=== PATIENT | male | born 1950 | race African-American/Black ===

== ENCOUNTER 2018-07-25 14:25 | Inpatient (IN) | payer OTHER ==
[~2018-07-25] VITALS: Ht 180.3 cm; Wt 92.1 kg
--- NOTE | ~2018-07-25 | EKG ---
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 : 1950 Requested By: Elver Mccormick Order Number: [id number] MD: Geronimo Jasso Measurements Intervals [place] Rate: 81 P: 60 PA: 212 QRS: -45 QRSD: 144 T: 3 QT: 387 QTc: 450 Interpretive Statements Sinus arrhythmia Borderline prolonged PA interval RBBB and LAFB Compared to ECG 11/01/2012 21:46:04 Heart rate has slowed Electronically Signed On 07-26-2018 8:02:18 SENIOR DIRECTOR by Geronimo Jasso [email or web address] <ELECTRONICALLY SIGNED> By: Geronimo Jasso MD, [facility] 07/26/18 0802 0 0 Geronimo Jasso MD, [facility] /EPI
--- NOTE | ~2018-07-25 | 2DMMODE ---
[facility] [address] [place] [address] 2 D/M-MODE ECHOCARDIOGRAM Name: NIDIATOM T Room #: 353-P [facility] IN ..#: [id number] Admission: 07/25/18 Attend Phys: Lavon Helton MD Discharge: Date of : 48 Date of Service: 07/26/18 1202 Report #: [id number] THIS REPORT FOR: //name// APPROVED REPORT Study performed: 07/26/2018 08:58:14 EXAM: Comprehensive 2D, Doppler, and color-flow Echocardiogram Patient Location: Echo lab Room #: [facility] Status: routine BSA: 2.10 HR: 74 bpm BP: 125/69 mmHg Rhythm: NSR Other Information Study Quality: Good Risk Factors: Cardiac Risk Factors: HTN, DM Indications CVA/TIA Diabetes Hypertension/HDD Echo Enhancing Agent Indication: Rule out Shunt Agent(s) / Amount(s) Used: Agitated Saline 7 cc 2D Dimensions RVDd: 31.95 mm IVSd: 13.03 (7-11mm) LVOT Diam: 22.48 (18-24mm) LVDd: 47.60 mm PWd: 13.77 (7-11mm) Ascending Ao: 33.40 (22-36mm) LVDs: 27.30 (25-40mm) Aortic Root: 32.71 mm IVC: 15.00 mm Volumes Left Atrial Volume (Systole) Single Plane 4CH: 35.28 mL Single Plane 2CH: 74.43 mL LA ESV Index: 28.00 mL/m2 Aortic Valve [facility] [address] [place] [address] 2 D/M-MODE ECHOCARDIOGRAM Name: TOM JACOB Room #: 353-P [facility] IN ..#: [id number] Admission: 07/25/18 Attend Phys: Lavno Helton MD Discharge: Date of : 48 Date of Service: 07/26/18 1202 Report #: [id number] AoV Peak Kwesi.: 1.94 m/s AO Peak Gr.: 15.05 mmHg LVOT Max P.11 mmHg LVOT Max V: 1.33 m/s VINICIUS Vmax: 2.73 cm2 Mitral Valve E/A Ratio: 0.9 MV Decel. Time: 195.97 ms MV E Max Kwesi.: 0.75 m/s MV A Kwesi.: 0.81 m/s MV PHT: 56.83 ms IVRT: 55.36 ms Pulmonary Valve PV Peak Kwesi.: 1.10 m/s PV Peak Gr.: 4.84 mmHg Pulmonary Vein P Vein S: 0.41 m/s P Vein A: 0.35 m/s P Vein D: 0.51 m/s P Vein A Dur.: 129.2 msec P Vein S/D Ratio: 0.80 Tricuspid Valve TR Peak Kwesi.: 1.48 m/s TR Peak Gr.: 8.78 mmHg Left Ventricle The left ventricle is normal size. There is normal LV segmental wall motion. Mild concentric left ventricular hypertrophy. The left ventricular systolic function is normal. The left ventricular ejection fraction is within the normal range. LVEF is 55-60%. Grade II - pseudonormal filling dynamics. Right Ventricle The right ventricle is normal size. The right ventricular systolic function is normal. Atria The left atrium size is normal. The right atrium size is normal. Aortic Valve The aortic valve is normal in structure. No aortic regurgitation is present. There is no aortic valvular stenosis. Mitral Valve The mitral valve is normal in structure. Trace mitral regurgitation. [facility] [address] [place] [address] 2 D/M-MODE ECHOCARDIOGRAM Name: NIDIATOM T Room #: 353-P [facility] IN .R.#: [id number] Admission: 07/25/18 Attend Phys: Lavon Helton MD Discharge: Date of : 48 Date of Service: 07/26/18 1202 Report #: [id number] No evidence of mitral valve stenosis. Tricuspid Valve The tricuspid valve is normal in structure. There is no tricuspid valve regurgitation noted. Pulmonic Valve The pulmonary valve is normal in structure. There is no pulmonic valvular regurgitation. Great Vessels The aortic root is normal in size. IVC is normal in size and collapses >50% with inspiration. Pericardium There is no pericardial effusion. <Conclusion> The left ventricle is normal size. LVEF is 55-60%. The aortic valve is normal in structure. The mitral valve is normal in structure. Trace mitral regurgitation. The tricuspid valve is normal in structure. The pulmonary valve is normal in structure. <ELECTRONICALLY SIGNED> By: Luis A Bautista MD 07/26/18 120 01 01 Luis A Bautista MD /INF
--- NOTE | ~2018-07-25 | EKG ---
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: TANISHA : 1950 Requested By: Luis Mayen Order Number: [id number] MD: Geronimo Jasso Measurements Intervals [place] Rate: 111 P: 62 AR: 181 QRS: -60 QRSD: 149 T: 32 QT: 348 QTc: 473 Interpretive Statements Sinus tachycardia RBBB and LAFB Compared to ECG 11/01/2012 21:46:04 Heart rate has increased Electronically Signed On 07-26-2018 7:53:24 GLASS LINED TANK REPAIRER by Geronimo Jasso [email or web address] <ELECTRONICALLY SIGNED> By: Geronimo Jasso MD, [facility] 07/26/18 0753 1430 1430 Geronimo Jasso MD, FACC /EPI
--- NOTE | ~2018-07-25 | HC ---
[facility] [place] [address] CONSULTATION Name: TOM JACOB Room #: 353-P ADM IN M.R.#: [id number] Admission: 07/25/18 Attend Phys: Lavon Helton MD Discharge: Date of : 49 Report #: [id number] THIS REPORT FOR: //name// CC: Lavon Glynn MD DATE OF SERVICE: 07/25/2018 HISTORY OF PRESENT ILLNESS: The patient is a 67-year-old male who I was asked to see for presentation of a cerebrovascular accident. He does not have documented coronary artery disease. He has never had a prior stroke until what appears the day after approximately 1:30 to 1:00 p.m. today, he woke up with after a nap with some right upper extremity weakness and clumsiness. Came to [facility] Emergency Room. He was seen by ER physician and Neurology. They decided no TPA to be given. He had some subtle resolving of his symptoms and had a recent workup for GI bleed. So, there were some complicating issues. His CT scan was negative for bleed. The MRI suggests a small focal 7-mm acute cortical infarct in the high left frontal region, felt to be embolic, mild white matter disease, periventricular. CT scan stroke protocol. CTA, no evidence of high-grade stenosis or aneurysm. No significant stenosis in the carotid arteries. An unremarkable CT perfusion. He is slowly resolving tonight. He is alert and oriented. He is walking. Only right upper extremity was involved. He still complains of some clumsiness in strength and weakness, but is getting better. LABORATORY WORK: Sodium 135, potassium 4.6, creatinine 1.0. Sugars have been elevated in the 300 range. Lipids were not performed. Troponin is negative. Alkaline phosphatase was mildly elevated. Magnesium was low. Calcium 10.2. Liver function tests were normal. Drug screen was negative. H and H was 13.9 and 43.1, white count 6.5. TSH normal 0.658. FAMILY HISTORY: Negative for premature coronary artery disease. PAST MEDICAL HISTORY: Positive for hypertension, hypercholesterolemia, bowel resection with colostomy, now has been taken back down for colon cancer and diabetes, DJD. HOME MEDICATIONS: Finasteride, lisinopril 10, lovastatin 20, glimepiride 4, metformin 1000 b.i.d., Protonix and a baby aspirin, he states he has taken for 15 years. SOCIAL HISTORY: He is . He is retired from the [employer]. He has grown children. No alcohol. Pack a day smoker. REVIEW OF SYSTEMS: Negative except for some hesitancy and as stated above. [facility] [address] [place] [address] CONSULTATION Name: TOM JACOB Room #: 353-P [facility] IN M.R.#: [id number] Admission: 07/25/18 Attend Phys: Lavon Helton MD Discharge: Date of : 48 Report #: [id number] PHYSICAL EXAMINATION: GENERAL: He is pleasant and alert. He is ambulating. VITAL SIGNS: Blood pressure 120/68, pulse 80s. HEENT: Eyes reveal xanthelasmas. Pharynx is clear. NECK: Shows preserved upstrokes without JVD or bruits. LUNGS: Clear. CARDIOVASCULAR: Regular rate and rhythm, S1, S2, without murmur or gallop. ABDOMEN: Soft. No HSM or abdominal bruit. EXTREMITIES: Reveal no edema. Distal pulses intact. NEUROLOGIC: There is some weakness and some slight clumsiness of the right upper extremity and hand. The attractions associate strength is fairly well preserved. The arm is weaker 1-2+. Fine motor is also off slightly. No other focal findings. ASSESSMENT: 1. Cerebrovascular accident, left frontal lobe as described above with mild right upper extremity residual. 2. Hypertension. 3. Hypercholesterolemia. 4. Diabetes. 5. Degenerative joint disease. RECOMMENDATIONS AND PLAN: He is on Lovenox prophylactically. Continue with his aspirin and statin. We will check lipid profile, echo Doppler in the morning with bubble. He is on a telemetry floor. Obviously underlying paroxysmal AFib is a concern here, but there is no documentation of this and he is in sinus rhythm currently. Low fat, low sodium, cholesterol diet and we will follow with you. Obviously at risk for coronary artery disease, but none documented. We will also give consideration to outpatient stress testing. By: 2034 0858 Elver Mccormick MD, FACC /nt
--- NOTE | ~2018-07-25 | HC ---
[facility] [place] [address] CONSULTATION Name: TOM JACOB Room #: 353-P [facility] IN ..#: [id number] Admission: 07/25/18 Attend Phys: Lavon Helton MD Discharge: Date of : 49 Report #: [id number] THIS REPORT FOR: //name// CC: Lavon Glynn DATE OF SERVICE: 07/25/2018 HISTORY OF PRESENT ILLNESS: This is a 67-year-old male patient who was seen by me in the Emergency Room. The patient had an acute onset of what looks like ataxia in the right upper extremity. He went to sleep around noon and woke up around 1:30 and had these symptoms, so his time of onset is known. He was still having symptoms when he came here. REVIEW OF SYSTEMS: Positive for weakness and ataxia in the right upper extremity. He has been recently worked up for GI bleed. His hemoglobin has fallen and they were able to localize the GI bleed. He does have a history of hypertension, but his blood pressure was not too bad. He does have a history of hyperglycemia and hyperlipidemia. He has a prior history of colon cancer. This was his relevant 14-point review of system. PAST MEDICAL HISTORY: Negative for any stroke. FAMILY HISTORY: Negative for early age stroke. SOCIAL HISTORY: He smokes. PHYSICAL EXAMINATION: Indicate he is alert, responsive. His speech, concentration, fund of knowledge and memory is his baseline. Cranial nerve examination 2-12 looks mostly unremarkable. He does have slight weakness in the right upper extremity. He is able to walk. His acqwyo-mt-nhtc is abnormal in the right upper extremity and that was the main finding on examination. His cardiac and respiratory examination was unremarkable. IMPRESSION: The patient's clinical presentation was consistent with cerebrovascular accident. It appeared to be a small cerebrovascular accident. We had a long and multiple conversations with the patient. We discussed the TPA. He was outside the window for 3 hours, but inside the window for 4-1/2 hours. We talked about TPA, but the problem was difficult because of his recent history of GI bleed. We could not identify when was the last GI bleed this patient had. He has had somewhere in June, so it was not clear. If we gave him the option of TPA, he decided against the TPA because of the potential side effect and the main thing he had was ataxia. So, we went ahead and did a CT angio and perfusion. I reviewed that with the radiologist and he is on no abnormality. Subsequently, we did get an MRI done, which demonstrated a small [address] [address] CONSULTATION Name: TOM JACOB Room #: 353-P [facility] IN M.R.#: [id number] Admission: 07/25/18 Attend Phys: Lavon Helton MD Discharge: Date of : 49 Report #: [id number] stroke. It is surprisingly in the frontal area. We gave him some fluid bolus. We will basically watch him and start him on stroke prophylaxis. More than 50 minutes of time was spent taking care of this patient today and majority of that time was spent counseling the patient about pros and cons of TPA, his management and his testing, etc. Thank you very much for this referral. By: 1754 0041 Charly Garrett MD /nt
[~2018-07-25 14:25] MED LIST: AMARYL4 MG PO; ASPIRIN EC81 M1 PO; FINASTERIDE5 MG PO; GLUCOPHAGE1000 MG PO; LISINOPRIL10 MG PO; LOVASTAT20 PO; METFORMIN HCL1000 M1 PO; NORCO 5-325 TA1 EACH PO; PROTONIX40 M2 PO; ZOFRAN4 MG PO
[2018-07-25 14:26] VITALS: BP 152/90
[2018-07-25 15:06] LABS: HEMATOCRIT 43.1 % (42.0-52.0); HEMOGLOBIN 13.9 gm/dL (14.0-18.0); MCH 24.5 pg (26.0-34.0); MCHC 32.1 g/dL (28.0-37.0); MCV 76.1 fL (80.0-100.0); PLATELET COUNT 217 thou/uL (150-400); RBC 5.66 mil/uL (4.50-6.00); RDW 22.8 % (10.5-14.5); WBC 6.5 thou/uL (4.0-11.0)
[2018-07-25 15:20] LABS: ANION GAP 13 mmol/L (7-16); BUN 13 mg/dL (7-18); CALCIUM 10.2 mg/dL (8.5-10.1); CHLORIDE 98 mmol/L (98-107); CO2 24 mmol/L (21-32); GLUCOSE 394 mg/dL (74-106); POTASSIUM 4.6 mmol/L (3.5-5.1); SODIUM 135 mmol/L (136-145)
[2018-07-25 15:20] LABS: URINE BILIRUBIN NEGATIVE (Negative); URINE BLOOD TRACE (Negative); URINE CLARITY CLEAR; URINE COLOR YELLOW; URINE GLUCOSE-RANDOM* 3+ (Negative); URINE KETONES NEGATIVE (Negative); URINE LEUKOCYTES-REFLEX NEGATIVE (Negative); URINE NITRITE-REFLEX NEGATIVE (Negative); URINE PROTEIN (DIPSTICK) NEGATIVE (Negative); URINE SPECIFIC GRAVITY 1.015 (1.005-1.035); URINE UROBILINOGEN 0.2 E.U./dl (0.2-1.0)
[2018-07-25 15:23] LABS: APTT 27.7 Seconds (24.5-32.8); PROTIME 10.7 Seconds (9.3-11.4)
[2018-07-25 15:28] LABS: AMP/METHAMP Negative (Negative); BARBITURATES Negative (Negative); BENZODIAZEPINES Negative (Negative); COCAINE Negative (Negative); METHADONE Negative (Negative); OPIATES Negative (Negative); PCP Negative (Negative)
[2018-07-25 15:28] LABS: ALBUMIN 3.4 g/dL (3.4-5.0); MAGNESIUM 1.5 mg/dL (1.8-2.4); SGOT 24 U/L (15-37); SGPT 33 U/L (30-65); TOTAL BILIRUBIN 0.3 mg/dL (<0.1-1.0); TOTAL PROTEIN 7.8 g/dL (6.4-8.2); TROPONIN-I <0.06 ng/mL (<0.06)
[2018-07-25 16:34] LABS: ANISOCYTOSIS 2+
[2018-07-25 17:09] VITALS: BP 133/80
[2018-07-25 17:43] VITALS: BP 133/84
[2018-07-25 17:59] VITALS: BP 133/84
[2018-07-25 19:07] VITALS: BP 119/68
[2018-07-25 20:58] LABS: CHOLESTEROL 138 mg/dL (<200); HDL CHOLESTEROL 28 mg/dL (>40); LDL CHOLESTEROL 49 mg/dL (<100); TC:HDL 4.9 Ratio (Not establshd); TRIGLYCERIDE 306 mg/dL (<150); VLDL 61 mg/dL (<40)
[2018-07-25 21:00] LABS: SERUM ASSESSMENT Clear
[2018-07-26] VITALS (7 sets, daily range): BP systolic 104–133; BP diastolic 69–84
[2018-07-26 06:30] LABS: CALCIUM 9.7 mg/dL (8.5-10.1); CREATININE 0.8 mg/dL (0.7-1.3)
[2018-07-26 06:38] LABS: HEMATOCRIT 40.2 % (42.0-52.0); HEMOGLOBIN 12.8 gm/dL (14.0-18.0); MCH 24.3 pg (26.0-34.0); MCHC 31.8 g/dL (28.0-37.0); MCV 76.6 fL (80.0-100.0); RBC 5.26 mil/uL (4.50-6.00); RDW 23.5 % (10.5-14.5); WBC 4.8 thou/uL (4.0-11.0)
[2018-07-26 11:14] LABS: % SATURATION 10 % (20-39); IRON 35 ug/dL (65-175); TIBC 337 ug/dL (250-450)
[2018-07-26 11:41] LABS: FERRITIN 25 ng/mL (26-388)
[2018-07-27 04:35] VITALS: BP 110/61
[2018-07-27 08:03] VITALS: BP 115/77
[2018-07-27] MEDS ORDERED: B-12500 MCG PO (11:42)
[2018-07-27] MEDS ORDERED: NICOTINE TRANSD21 M1 TRANSDERM (11:42)
[2018-07-27 12:37] VITALS: BP 115/77
== END 2018-07-27 16:00 | disposition home or self-care (01) | DRG 64 ==
LOC: ER 14:25 → 3W 16:07 → EROBS 16:07 → 3W 17:43
PROVIDERS: Emergency Medicine; Hospitalist; Internal Medicine Cardiovascular Disease; Internal Medicine Geriatric Medicine
DX: I63.9 Cerebral infarction, unspecified (principal); E43 Unspecified severe protein-calorie malnutrition; K92.2 Gastrointestinal hemorrhage, unspecified; I10 Essential (primary) hypertension; E78.00 Pure hypercholesterolemia, unspecified; E11.9 Type 2 diabetes mellitus without complications; K21.9 Gastro-esophageal reflux disease without esophagitis; E83.42 Hypomagnesemia; F17.210 Nicotine dependence, cigarettes, uncomplicated; Z93.2 Ileostomy status; Z93.3 Colostomy status; Z85.038 Personal history of other malignant neoplasm of large intestine; Z85.048 Personal history of other malignant neoplasm of rectum, rectosigmoid junction, and anus; Z79.82 Long term (current) use of aspirin; Z79.84 Long term (current) use of oral hypoglycemic drugs; Z79.899 Other long term (current) drug therapy; Z71.6 Tobacco abuse counseling
CPT/HCPCS: 10879

== ENCOUNTER → 2019-11-13 | Outpatient (CLI) | payer OTHER ==
[~2019-11-13] MED LIST changes: +B-12500 MCG PO; +NICOTINE TRANSD21 M1 TRANSDERM
== END ==
LOC: SJCVCIMAG 11-08 11:57
DX: I45.10 Unspecified right bundle-branch block (principal); I44.0 Atrioventricular block, first degree; I10 Essential (primary) hypertension; E78.5 Hyperlipidemia, unspecified; E11.9 Type 2 diabetes mellitus without complications

== ENCOUNTER → 2020-08-19 | Outpatient (CLI) | payer OTHER | LOC: SJCVC 10:13 | PROVIDERS: ATTEND Internal Medicine Cardiovascular Disease | DX: R94.31 Abnormal electrocardiogram [ECG] [EKG] (principal); I45.2 Bifascicular block; I63.449 Cerebral infarction due to embolism of unspecified cerebellar artery; I10 Essential (primary) hypertension; E78.00 Pure hypercholesterolemia, unspecified; E11.9 Type 2 diabetes mellitus without complications; Z72.0 Tobacco use; Z79.4 Long term (current) use of insulin; Z79.899 Other long term (current) drug therapy ==

== ENCOUNTER → 2021-03-27 | Outpatient (CLI) | payer OTHER | LOC: SJCVCIMAG 09:43 | PROVIDERS: ATTEND Internal Medicine Cardiovascular Disease | DX: I49.1 Atrial premature depolarization (principal); I45.10 Unspecified right bundle-branch block; I10 Essential (primary) hypertension; E11.9 Type 2 diabetes mellitus without complications; E78.5 Hyperlipidemia, unspecified; R06.00 Dyspnea, unspecified; R53.83 Other fatigue ==

== ENCOUNTER 2021-10-20 18:43 | Inpatient (IN) | payer OTHER ==
[~2021-10-20] VITALS: Ht 180.3 cm; Wt 90.7 kg
[2021-10-20 18:44] VITALS: BP 108/57
[2021-10-20 19:52] LABS: ABSOLUTE NEUTROPHILS 3.1 thou/uL (1.4-8.2); BASOPHILS 0.4 % (0.0-2.0); EOSINOPHILS 0.2 % (0.0-3.0); HEMOGLOBIN 12.3 gm/dL (14.0-18.0); LYMPHOCYTES 17.8 % (24.0-44.0); MCH 23.9 pg (26.0-34.0); MCHC 31.5 g/dL (28.0-37.0); MCV 75.8 fL (80.0-100.0); MONOCYTES 11.5 % (1.0-8.0); PLATELET COUNT 217 thou/uL (150-400); POLYS 70.1 % (36.0-66.0); RBC 5.14 mil/uL (4.50-6.00); RDW 19.1 % (10.5-14.5); WBC 4.4 thou/uL (4.0-11.0)
[2021-10-20 20:05] LABS: CALCIUM 11.8 mg/dL (8.5-10.1); CREATININE 1.9 mg/dL (0.7-1.3); POTASSIUM 5.3 mmol/L (3.5-5.1)
[2021-10-20 20:20] LABS: ALBUMIN 3.7 g/dL (3.4-5.0); MAGNESIUM 1.5 mg/dL (1.8-2.4); TOTAL BILIRUBIN 0.9 mg/dL (0.2-1.0); TOTAL PROTEIN 7.4 g/dL (6.4-8.2)
[2021-10-20 20:32] LABS: ANISOCYTOSIS 1+; HYPOCHROMASIA 1+
[2021-10-20 22:05] LABS: URINE BILIRUBIN NEGATIVE (Negative); URINE BLOOD TRACE (Negative); URINE CLARITY SL CLOUDY; URINE COLOR YELLOW; URINE GLUCOSE-RANDOM* NEGATIVE (Negative); URINE KETONES NEGATIVE (Negative); URINE LEUKOCYTES-REFLEX NEGATIVE (Negative); URINE NITRITE-REFLEX NEGATIVE (Negative); URINE PROTEIN (DIPSTICK) 2+ (Negative); URINE SPECIFIC GRAVITY >= 1.030 (1.005-1.035); URINE UROBILINOGEN 0.2 E.U./dl (0.2-1.0)
[2021-10-20 22:44] LABS: BACTERIA-REFLEX 1-9 Few /HPF (None Seen); CELLULAR CASTS 0-3 Few /LPF (None Seen); CRYSTALS None Seen /LPF (None Seen); HYALINE CASTS 4-10 Moderate /LPF (None Seen); MUCUS 4-6 Moderate strn/LPF (None Seen); SQUAMOUS 4-10 Moderate /LPF (0-3); URINE RBC 1-2 Rare /HPF (NONE SEEN); URINE WBC-REFLEX 0-5 Rare /HPF (0-5)
[2021-10-21 06:21] VITALS: BP 109/66
[2021-10-21 09:00] VITALS: BP 104/68
--- NOTE | 2021-10-21 11:28 | EKG ---
[address] [place] [address] ELECTROCARDIOGRAM REPORT Name: TOM JACOB Room #: 170-16 ADM IN M.R.#: [id number] Admission: 10/20/21 Attend Phys: Ozzie Ulloa MD Discharge: Date of : 49 Report #: [id number] 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: UNKNOWN : 1950 Requested By: Kim Cooper Order Number: [id number] MD: Damion Peterson Measurements Intervals [place] Rate: 136 P: 0 IN: 61 QRS: -49 QRSD: 147 T: 43 QT: 356 QTc: 536 Interpretive Statements Sinus tachycardia Ventricular premature complex RBBB Compared to ECG 07/26/2018 07:11:17 Ventricular premature complex(es) now present Sinus arrhythmia no longer present Electronically Signed On 10-21-2021 11:27:55 PEDIATRIC PHYSICIAN ASSISTANT by Damion ePterson [email or web address] <ELECTRONICALLY SIGNED> By: Damion Peterson MD, [facility] 10/21/21 1127 50 50 Damion Peterson MD, FACC /EPI
[2021-10-21 12:34] LABS: APTT 67.5 Seconds (24.5-32.8); INR 1.14; PROTIME 12.3 Seconds (10.5-12.1)
[2021-10-21 13:50] LABS: % SATURATION 15 % (20-39); IRON 45 ug/dL (65-175); TIBC 309 ug/dL (250-450)
[2021-10-21 15:55] VITALS: BP 104/70
[2021-10-21 19:59] VITALS: BP 105/67
--- NOTE | 2021-10-21 20:09 | NUR ---
REPORT CALLED TO MILAN DOWLING ON THE FLOOR. PT UPDATED THAT HE WILL BE MOVING TO A NEW ROOM.
--- NOTE | 2021-10-21 20:10 | NUR ---
HEPARIN DRIP INFUSING AT 15U/KG/HR (13.6ML/HR). NO S/S BLEEDING NOTED. PT DENIES ANY PAIN OR SOA AT THIS TIME.
[2021-10-21 20:44] VITALS: BP 105/67
[2021-10-21 21:58] VITALS: BP 108/72
[2021-10-22 04:15] LABS: INR 1.16; PROTIME 12.6 Seconds (10.5-12.1)
[2021-10-22 04:20] LABS: APTT > 139.0 Seconds (24.5-32.8)
--- NOTE | 2021-10-22 04:41 | NUR ---
PT WAS ADMITTED TO THE UNIT FROM THE ER IN A STABLE CONDITION.PT ALERT AND ORIENTED,ABLE TO MAKE HIS NEEDS KNOWN.ADMISSION HX ,EDUCATION AND ASSESSMENT DONE.HEPARIN DRIP STARTED IN THE ER BEFORE PT WAS TRANSFERRED TO THE FLOOR.NO S/S OF BLEEDING NOTED SO FAR.LAB CALLED APTT >139 THIS AM,JET BLADE POLISHER ON DUTY NOTIFIED,ORDER NOTED TO FOLLOW PROTOCOL.HEPARIN DRIP WILL BE ON HOLD FOR ONE HOUR THEN RATE WILL BE REDUCED.PT SLEEPING ON HIS BED AT THIS TIME.CALL LIGHT WITHIN REACH.
[2021-10-22 07:36] VITALS: BP 103/65
--- NOTE | 2021-10-22 08:54 | HC ---
[facility] [place] [address] CONSULTATION Name: TOM JACOB Room #: 451-P ADM IN M.R.#: [id number] Admission: 10/20/21 Attend Phys: Ozzie Ulloa MD Discharge: Date of : 48 Report #: [id number] THIS REPORT FOR: cc: FAM - Family physician unknown FAM - Family physician unknown Vidal Diego MD ~ cc: Ranjana Grover MD, Salas Mcgill MD, Babs Morales MD, Elver Mccormick MD REQUESTING PHYSICIAN: Dr. Ranjana Grover. PRIMARY CARE PHYSICIAN: Dr. Salas Mcgill. REASON FOR CONSULTATION: History of colorectal cancer with retroperitoneal adenopathy and questionable bone changes. HISTORY OF PRESENT ILLNESS: The patient is a very pleasant 71-year-old male who is very clear that he had colorectal cancer about 2001 or 20 years ago. He reports having surgery with Dr. Roque at that time. He also reports receiving concurrent chemo and radiation therapy. The radiation therapy was at [facility]. He believes he received the chemotherapy at the ____ Cancer office, which would have been a group the patient's name rings a platt, but we will have to check our records. The patient has about a 3-month history of some back pain that is sometimes on the right, more regularly on the left. Has about a 5- or 10-pound weight loss. Has some GERD symptoms, but that is not new. Evidently on lab work had been found to have an elevated PSA by his description. This was repeated, still elevated. He had seen Dr. Babs Balderas last week, he had a cancer from his description, whether she thought this might be related to BPH or to something more sinister likely a malignancy. The patient denies any arm or leg swelling, any fevers or chills. Has had some newer bowel troubles with some constipation for about the last week. No new urination trouble. No blood in his urine or stool. PAST MEDICAL HISTORY: Notable for the history of what sounds like rectal cancer in 2001, status post surgery. It sounds like he had a temporary ostomy, then a reversal and radiation therapy and chemo. Does not recall his medical oncologist or radiation oncologist names. Also, a history of diabetes type 2, also history of a CVA, also hypertension, also hyperlipidemia, also GERD symptoms, also sounds like renal insufficiency. 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 He lives at home with the . He also has a daughter who suffers from lupus. No pets there. He does not drink, no street drugs, if I recall. [facility] [address] [place] [address] CONSULTATION Name: TOM JACOB Dacia Room #: 451-P ADM IN M.R.#: [id number] Admission: 10/20/21 Attend Phys: Ozzie Ulloa MD Discharge: Date of : 49 Report #: [id number] FAMILY HISTORY: Noncontributory. CURRENT MEDICATIONS: At this time in the hospital include insulin on a sliding scale, pantoprazole, melatonin 10 mg at bedtime, Tylenol p.r.n., and Zofran p.r.n. PHYSICAL EXAMINATION: VITAL SIGNS: Height is 5 feet 11 inches or 180.34 cm, weight is 200 pounds or 90.7 kilograms. Blood pressure is 111/66, O2 sat 98%, respirations 20, pulse 109, afebrile at 98.3. HEENT: Face seems symmetrical. NEUROLOGIC: Mood is pleasant, conversant. He is moving all extremities. LUNGS: Seem clear without any significant rhonchi or rales. HEART: Regular rate. LYMPHATICS: No enlarged lymph nodes in the supraclavicular, cervical, axillary, or inguinal region. ABDOMEN: Without masses. EXTREMITIES: Without clubbing, cyanosis, or edema. LABORATORY DATA: Lab review here, has a potassium of 5.3, a creatinine of 1.9, glucose of 172. Transaminases were normal. Note that his alkaline phosphatase was elevated at 239, calcium 11.8; this will be repeated. Iron in the past was low, this will be repeated today. D-dimer is elevated at 4.58. White count 4.4, hemoglobin 12.3. MCV 75.8; note that back in 2013, it was 82.6. Platelets are 217. White count differential fairly nonacute, no abnormal forms seen. Note that CEA and PSA were ordered and are pending. He was COVID-19 negative. IMAGING: Included the CAT scan that talks about bulky upper abdominal retroperitoneal adenopathy. I did look at the images myself and I concur these are ____ paraspinous in nature. There is also a question about patchy increased density in the spine, sacrum and pelvis, possibly metastatic disease. Note that a bone scan has been ordered. ASSESSMENT AND PLAN: 1. History of rectal cancer from 2001, doubt recurrence this far out. Last colonoscopy was 2 years ago. 2. Retroperitoneal adenopathy with questionable bony changes and possible elevation of PSA. We will repeat PSA today. We will also consult Urology group that Dr. Babs Balderas is part of. I have talked with their nurse practitioner, [place]. They will see the patient and provide records from outside office. 3. Hypercalcemia, may be hydrated. We will check ionized calcium. 4. Back pain with elevated alkaline phosphatase. We will check bone scan. 5. Dyspnea on exertion, shortness of air. Defer to others. [facility] [address] [place] [place] [address] CONSULTATION Name: TOM JACOB Dacia Room #: 451-P ADM IN M.R.#: [id number] Admission: 10/20/21 Attend Phys: Ozzie Ulloa MD Discharge: Date of : 48 Report #: [id number] 6. Microcytic anemia. We will check iron panel. 7. Diabetes type 2. diet and pharmacologic management of this. 8. History of cerebrovascular symptoms. Minimal symptoms at this point. 9. Hypertension. Medications per others. 10. Hyperlipidemia. Medications per others. 11. Gastroesophageal reflux disease symptoms. Per others. 12. Chronic kidney disease. Per others. <ELECTRONICALLY SIGNED> By: Vidal Diego MD 10/22/21 0854 0730 1015 Vidal Diego MD /nt
[2021-10-22 09:02] LABS: CALCIUM 10.4 mg/dL (8.5-10.1)
[2021-10-22 09:10] LABS: CREATININE 1.2 mg/dL (0.7-1.3); POTASSIUM 4.6 mmol/L (3.5-5.1)
--- NOTE | 2021-10-22 11:44 | NUR ---
PT ADMITTED RELATED TO FATIGUE, WEAKNESS, HX OF COLON CANCER 2001. CM REVIEWED CHART AND SPOKE WITH CARE TEAM. CM MET WITH PT AT BEDSIDE THIS DAY. PT APPEARED TO BE A&O X4. CM ROLE INTRODUCED. PT INDICATED HE LIVES IN A HOUSE WITH HIS SPOUSE AND DTR. HE INDICATED THERE ARE 28 STEPS WITH HANDRAILS BETWEEN THE GARAGE AND 3RD FLOOR. PT INDICATED HE HAD BEEN INDEPEDNENT WITH GAIT AND ADLS UP UNTIL THE LAST TWO WEEKS WHEN HE HAD SOME FALLS AT HOME AND HAD BEEN USING FWW AND CANE TO ASSIST WITH MOBILITY. PT'S PCP IS DR. DELANO CLEMONS. PT INDICATED NO HH, OP, OR SKILLED HX. PT INDICATED THAT HE AND HIS MAY BE LOOKING TO SELL THEIR HOUSE IN THE VERY NEAR FURTURE MAYBE TO THEIR GRANDAUGHTER TO BUY SOMETHING ALL ON ONE LEVEL. PT INDICATED HE ANTICIPATES RETURNING HOME ONCE MEDICALLY STABLE. GI, UROLOGY, AND ONC CONSULTED. PT TO HAVE A BONE SCAN TODAY. CM FOLLOWING REGARDING DC PLANNING.
--- NOTE | 2021-10-22 11:57 | NUR ---
ELEVATED D DIMER 4.58 ON HEPARIN DRIP APTT 139 CHRISTOS THIS MORNING AND REDRAW AT 1130 AWAITING RESULTS. A/O X 4. ROOM AIR, ONE ASSIST WITH TRANSFERS, RIGHT AC IV WITH NS INFUSING @ 100 MLS/HR, CONT B/B, SR W/ BBB, AC HS ACCU CHECKS 116 @ BREAKFAST NO INSULIN NEEDED, WILL HAVE WHOLE BODY BONE SCAN TODAY. BACK PAIN 6/10 TYLEONL GIVEN,
[2021-10-22 15:08] LABS: CEA 2.4 ng/mL (0.0-4.7)
[2021-10-22 16:18] LABS: BE(vivo) 0.1 mmol/L (-2 to +3); HCO3 23.8 mmol/L (22.0-26.0); PO2 65.2 mmHg (80.0-100.0); sO2 93.8 % (92.0-98.0)
[2021-10-22 16:38] LABS: CALCIUM 10.3 mg/dL (8.5-10.1); CREATININE 1.2 mg/dL (0.7-1.3); PHOSPHORUS 3.4 mg/dL (2.6-4.7)
[2021-10-22 20:00] VITALS: BP 107/68
--- NOTE | 2021-10-23 | NUR ---
ALERT AND ORIENTED. PLEASANT. AWAITING BM AFTER MIRALAX.REPORTS WEAKNESS TO BLE SO WILL USE BEDPAN IF NEED BE. VOIDING OKAY PER URINAL. ST ON TELEMETRY. ON ROOM AIR,DENIES ANY DYSPNES OR CHESTPAIN.CONTINUES ON HEPARIN DRIP.CALL LIGHT WITHIN REACH.
[2021-10-23 04:46] VITALS: BP 102/65
[2021-10-23 07:18] VITALS: BP 115/73
--- NOTE | 2021-10-23 15:52 | NUR ---
PT HAD THORACIC AND LUMBAR MRI THIS DAY. NEURO CONSULTED. TO SEE PT TOMORROW PT WAS OFF UNIT FOR TEST. CM FOLLOWING TO ASSIST WITH DC PLANNING NEEDS.
[2021-10-23 16:01] VITALS: BP 111/72
[2021-10-23 20:04] VITALS: BP 113/71
--- NOTE | 2021-10-23 20:18 | NUR ---
ASSUMED CARE OF PT AT 0700, PT ORIENTED X 4, CLEAR LUNG SOUNDS, NORMAL HEART TONES. PT HAD MULTIPLE LARGE, BROWN, RUNNY BMS TODAY FOLLOWING MIRALAX. PT HAD NOT HAD A BOWEL MOVEMENT SINCE 10/14, FEELS RELIEF. PT ON HEPARIN DRIP AT 8.9 UNITS/KG/HR. NO RATE CHANGE AT THIS TIME, THERAPEUTIC APPT RANGE. NEXT DRAW 10/24 PER HEPARIN FLOW SHEET. PT TO GO TO MRI AND ULTRASOUND TODAY. NO CONCERNS AT THIS TIME.
[2021-10-23] MEDS ORDERED: CASODEX 50 MG T50 M1 PO (21:03)
[2021-10-23] MEDS ORDERED: DEXAMETHASONE 44 M1 PO (21:03)
--- NOTE | 2021-10-23 23:06 | NUR ---
PER REPORT, PT NEEDING TRANSFER TO FACILITY FOR NEUROSURGERY AND RADIATION ONCOLOGY. TRANSFER INITIATED WITH [facility] TRANSFER TEAM TO [facility] IN THE EVENING. NOTIFIED BY RN CARING FOR PT AROUND 2100 THAT [facility] HAD ACCEPTED PT AND GIVEN A BED NUMBER. WHEN PATIENT WAS UPDATED ON TRANSFER, HE REFUSED TO GO TO [facility] AND WANTED OR [facility]. TRANSFER INITIATED WITH WITH ALL REQUESTED PAPERWORK FAXED. TRANSFER TEAM SAID THEY WOULD NOT DO A NON-EMERGENT TRANSFER OVERNIGHT AND TO CHECK BACK TOMORROW. TRANSFER INITIATED WITH [facility] WITH REQUESTED FACESHEET FAXED. [facility] TRANSFER TEAM SAID THEY CURRENTLY DO NOT HAVE A BED BUT TO CHECK AGAIN TOMORROW. PT UPDATED ON POC.
--- NOTE | 2021-10-24 00:52 | NUR ---
DISCUSSED POSIBILITY OR TRANSFER TO [facility] AT BEGINNING OF SHIFT AND PROVIDED UPDATE FOR PT. PT WAS AGREEABLE AT THIS TIME. INFORMED PT THAT A BED WAS AVAILABLE AT [facility] AROUND 2100- AT THIS TIME PT BECAME VERY AGITATED, BEGAN SCREAMING AT THIS RN STATING HE "WOULD NEVER GO THERE" AND "ALL THIS FRIENDS THERE". EDUCATION PROVIDED REGARDING THE AVAILABILITY OF SPECIALTY SERVICES HERE. PT FEELS THAT WE ARE REFUSING THE TREAT HIM AND "MEDICARE SAID THIS WOULD HAPPEN". TOLL LINE MECHANIC INFORMED OF PTs REFUSAL. [facility] HAVE BEEN CONTACTED. FORMAL CANCELATION OF TRANSFER REQUEST MADE BY THIS RN AT 2158. DESPITE EDUCATION PT REMAINS VERBALLY AGGRESSIVE WITH THIS RN "NO ONE EVEN TOLD ME THIS" IN REGARD TO POTENTIAL TRANSFER. PT REPORTS HE WILL CONTINUE TO YELL AT NURSING STAFF BECAUSE " NO ONE ELSE IS HERE TO TAKE IT OUT ON"
[2021-10-24 07:15] VITALS: BP 121/77
[2021-10-24 09:44] LABS: ALBUMIN 2.9 g/dL (3.4-5.0); CALCIUM 10.9 mg/dL (8.5-10.1); POTASSIUM 4.7 mmol/L (3.5-5.1); TOTAL BILIRUBIN 0.5 mg/dL (0.2-1.0); TOTAL PROTEIN 7.2 g/dL (6.4-8.2)
--- NOTE | 2021-10-24 10:29 | NUR ---
CARE TEAM INITIATED TRANSFER FOR NEUROLOGICAL EVALUATION AND TREATMENT YESTERDAY EVENING. SENT INFO TO [facility], AND [facility]. [facility] COULD ACCEPT LAST EVENING BUT PT DECLINED TRANSFER THERE. PT'S DTR [facility] IS AT BEDSIDE THIS DAY. THEY ARE AGREEABLE TO TRANSFER TO [facility] THIS DAY. CM CHECKED WITH ALL FACILITIES AND [facility] CAN'T ACCEPT. [facility] REVIEWING. CM SEND CLINICAL TO [facility]. CM FOLLOWING FOR HOPEFUL TRANSFER.
--- NOTE | 2021-10-24 14:27 | NUR ---
CM send insurance copies to both [facility]. [facility] is the PT and family's preference. PT ACCEPTED TO BOTH [facility] - WAITING FOR BED AVAILABILITY. CM informed PT and family about the PT being accepted.
[2021-10-24] MEDS ORDERED: MELATONIN5 M1 PO (15:17)
[2021-10-24] MEDS ORDERED: ENOXAPARIN40 MG/0.4 SUBQ (15:17)
--- NOTE | 2021-10-24 15:34 | NUR ---
PT HAS BEEN ACCEPTED WITH A BED @ [facility] [place]. ROOM: [facility]. ADMITTING PHYSIAN DR. COBY NUNEZ. NURSE GIVEN NUMBER FOR REPORT . [facility] FORM AND TRANSFER FORM IS COMPLETE AND TRANSPORT IS SET FOR 1730 TODAY. PT CHART HAS BEEN COPIED. CM COMMUNICATED ALL THIS WITH PT AND FAMILY.
[2021-10-24 15:38] VITALS: BP 121/77
--- NOTE | 2021-10-24 15:56 | NUR ---
REPORT CALLED TO [facility] RN.
--- NOTE | 2021-10-25 11:17 | EKG ---
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 WOOD : 1950 Requested By: Ozzie Ulloa Order Number: [id number] MD: Geronimo Jasso Measurements Intervals [place] Rate: 62 P: 66 NM: 199 QRS: -33 QRSD: 146 T: 33 QT: 485 QTc: 493 Interpretive Statements Sinus rhythm Occasional atrial premature complexes Right bundle branch block Baseline wander in lead(s) V1 Compared to ECG 10/20/2021 18:51:09 Atrial premature complex(es) now present Sinus tachycardia no longer present Ventricular premature complex(es) no longer present Electronically Signed On 10-25-2021 11:17:05 [employer] by Geronimo Jasso [email or web address] <ELECTRONICALLY SIGNED> By: Geronimo Jasso MD, [facility] 10/25/21 1117 1517 1517 Geronimo Jasso MD, [facility] /EPI
--- NOTE | 2021-10-29 21:06 | PATH ---
[facility] [address] [address] [place] [address] PATHOLOGY RPT PROCEDURE Name: ISMAEL AMEZCUA Room #: 451-[facility] IN M.R.#: [id number] Admission: 10/20/21 Date of : 48 Discharge: 10/24/21 Report #: [id number] Path Case #: [id number] [facility] Accession Number: [id number] . 01 Material submitted: . lymph node - LT SUPRACLAVICULAR LYMPH NODE. Modifiers: left, SUPRACLAVICULAR . 01 Clinical history: . FATIGUE, WEAKNESS, HX OF COLON CANCER . 02 Diagnosis: Left supraclavicular lymph node, needle biopsy: - Involvement by metastatic moderate to poorly differentiated adenocarcinoma. - Please see comment. (MLK:jarett; 10/29/2021) . Special studies report received from [facility], [address] [place] [address], [address], [place], [address], on case [id number], labeled with their number [id number], dated 10/27/2021. . Flow Cytometry: Hematologic Neoplasia Assessment . Clinical History . . Indication For Study Evaluation for lymphadenopathy . Specimen Tissue, Lt Supraclavicular . Viability 31% (7AAD exclusion) . Interpretation Tissue, Lt Supraclavicular: No significant lymphoid immunophenotypic abnormalities detected . Comments Correlation with available clinical, laboratory, and morphologic data is recommended. . Populations Analyzed Lymphocytes: 2% B-cells: 0.4%, polytypic/polyclonal sIg light chain pattern T-cells: no significant abnormalities of the markers [facility] [address] [place] [address] PATHOLOGY RPT PROCEDURE Name: ISMAEL AMEZCUA Room #: 451-P [facility] IN M.R.#: [id number] Admission: 10/20/21 Date of : 48 Discharge: 10/24/21 Report #: [id number] Path Case #: [id number] tested CD4:CD8: 1.8 NK cells: 0.5% CD45 Negative 96% No significant reactivity with the markers tested Events/Debris: (may represent non-hematolymphoid cells, degenerated cells, debris, unlysed red blood cells, etc.) . Morphologic Evaluation A slide was reviewed for quality assurance consultant purposes only. . Specimen Description Cell Yield: 0.41 x 10 and 6 This sample is less than 50% viable which is considered suboptimal for routine clinical flow cytometry analysis. The analysis, however, is being reported because the sample is considered irreplaceable. Because of diminished viability, these results must be interpreted in the context of all available clinical, laboratory, and morphologic data. . Reagent(s) Used CD2, CD3, CD4, CD5, CD7, CD8, CD10, CD11b, CD19, CD20, CD23, CD30, CD38, CD43, CD45, CD56, CD57, FMC-7, HLA-DR, kappa, lambda . at [facility]. Shay Segovia MD Pathologist . Intended Use Flow cytometry is optimally used to immunophenotypically characterize abnormal populations when they are detected. Negative flow cytometry results do not exclude lymphoma or neoplasia. Possible false negative flow cytometry results may occur in, but are not limited to, the following: neoplastic cells in Hodgkin lymphoma are not typically adequately represented by routine clinical flow cytometry; neoplastic cells may be lost or inadequately represented due to degeneration, sample processing, sampling artifact, or patchy involvement; plasma cells are typically underrepresented by flow cytometry; immature cells/blasts may be underrepresented due to hemodilution; myeloproliferative disorders and low grade myelodysplasia may not have immunophenotypic abnormalities or increased blasts. Correlation with all available clinical, laboratory, and morphologic data is always necessary to assess for the possibility of false negative flow cytometry results and to establish a diagnosis. Each marker in this analysis was used to assess for potential antigenic abnormalities or to evaluate detected abnormalities. . Any image or images that accompany this report are sales representative cash registers images only and should not be used to render a diagnosis. . [address] [address] PATHOLOGY RPT PROCEDURE Name: ISMAEL AMEZCUA Room #: 451-P [facility] IN M.R.#: [id number] Admission: 10/20/21 Date of : 48 Discharge: 10/24/21 Report #: [id number] Path Case #: [id number] Disclaimer(s) This test was developed and its performance characteristics determined by [employer], [facility]. It has not been cleared or approved by the Food and Drug Administration. . Performing Labs [facility] is a business unit of [facility] a wholly-owned subsidiary of [employer]. . This test was performed at [facility]. at [address], [place], [address] - Loop Tacker: Segun Kay MD. . For inquiries, the physician may contact Lab: [phone] . A complete copy of the report is on file. . Professional services performed by [facility] at [address], [place] [address]. Technical services performed by [facility] at [address], [place] [address]. . (BRENDAN:patrice 10/28/2021) . [facility] 10/29/2021 1545 Local . 02 Comment: The patient's history of colon cancer, recent weakness and fatigue, and supraclavicular adenopathy is noted. Biopsy of the lymph node shows sheets of malignant epithelial cells, which are occasionally forming glandular structures. The tumor cells demonstrate some nuclear variability. Prominent nucleus formation and nuclear pseudoinclusions are seen. Mitotic activity is noted. 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 . Tissue was submitted at the time of biopsy for flow cytometric evaluation. Please see attached report. . The case is seen in co-review, with consensus, by Dr. Calista West, on 10/29/21. . (SIMÓNK:jarett; 10/29/2021) . 02 Addendum: . [facility] [address] [place] [address] PATHOLOGY RPT PROCEDURE Name: ISMAEL AMEZCUA Room #: 451-P [facility] IN M.R.#: [id number] Admission: 10/20/21 Date of : 48 Discharge: 10/24/21 Report #: [id number] Path Case #: [id number] This addendum is submitted to document communication of the diagnosis to [place], oncologic nurse practitioner at [facility], on 10/29/2021 at 1552. (MLK:staff genetic counselor; 10/29/2021) MBR/10/29/2021 Addendum Electronically Signed by Joel Bella MD, Pathologist . 02 Electronically signed: . Joel Bella MD, Pathologist NPI- [id number] . 01 Gross description: . The specimen is received in formalin, labeled "Ismael Amezcua, left supraclavicular lymph node". Received are two needle cores of pale hankins tissue measuring 1.5 and 1.7 cm in length, with each measuring 0.1 cm in diameter. The specimen is submitted entirely in cassettes A1 and A2. (CAA; 10/24/2021) . Also received with this case is an RPMI media filled container designated "Ismael Amezcua, Lt supraclavicular lymph node" and consists of a hankins-white cylindrical needle core biopsy (approximately 1.4 cm in length by 0.1 cm in diameter) which is given directly to send out for additional testing. ([facility] [place] [facility]; 10/24/2021) QAC/QAC 10/24/2021 1403 Local . 02 Microscopic: . Immunohistochemical stain results (properly controlled): . Block A1 AE1/AE3 - Tumor cells positive. CK7 - Tumor cells negative. CK20 - Tumor cells negative. CDX2 - Tumor cells negative. TTF-1 - Rare tumor faintly positive (nuclear). Napsin A - Tumor cells negative. Chromogranin - Tumor cells negative. Synaptophysin - Tumor cells negative. PAX8 - Tumor cells negative. PSA - Tumor cells positive. . . (MLK:jarett; 10/29/2021) . . 02 Pathologist provided ICD-10: C77.0 . 02 CPT . [address] [address] PATHOLOGY RPT PROCEDURE Name: ISMAEL AMECZUA [place] Room #: 451-P [facility] IN .R.#: [id number] Admission: 10/20/21 Date of : 48 Discharge: 10/24/21 Report #: [id number] Path Case #: [id number] Specimen Comment: A courtesy copy of this report has been sent to [phone] Specimen Comment: Report sent to Performed at: 01 [facility] Daniel Whatley [address] [place] [address] [address], [place], [place] [id number] MD Rolando Blanco MD Phone: [phone] Performed at: [address] [id number] MD Enmanuel Osorio MD Phone: [phone]
== END 2021-10-24 18:15 | disposition short-term general hospital (02) | DRG 802 ==
LOC: ER 18:43 → 4W 22:54 → EROBS 22:54 → 4W 10-21 20:23
PROVIDERS: Internal Medicine Hematology & Oncology; Nurse Practitioner; ADMIT Internal Medicine; ATTEND Internal Medicine
PROC: 07B23ZX Excision of Left Neck Lymphatic, Percutaneous Approach, Diagnostic (ICD-10-PCS; principal; 2021-10-23)
DX: R59.1 Generalized enlarged lymph nodes (principal); I26.99 Other pulmonary embolism without acute cor pulmonale; C79.9 Secondary malignant neoplasm of unspecified site; G95.29 Other cord compression; N17.9 Acute kidney failure, unspecified; C61 Malignant neoplasm of prostate; E87.5 Hyperkalemia; E11.65 Type 2 diabetes mellitus with hyperglycemia; E83.42 Hypomagnesemia; E83.52 Hypercalcemia; D50.9 Iron deficiency anemia, unspecified; E78.5 Hyperlipidemia, unspecified; N18.9 Chronic kidney disease, unspecified; K21.9 Gastro-esophageal reflux disease without esophagitis; E11.22 Type 2 diabetes mellitus with diabetic chronic kidney disease; R53.81 Other malaise; E86.0 Dehydration; Z20.822 Contact with and (suspected) exposure to COVID-19; N40.0 Benign prostatic hyperplasia without lower urinary tract symptoms; R13.10 Dysphagia, unspecified; K59.00 Constipation, unspecified; I12.9 Hypertensive chronic kidney disease with stage 1 through stage 4 chronic kidney disease, or unspecified chronic kidney disease; Z79.82 Long term (current) use of aspirin; Z86.73 Personal history of transient ischemic attack (TIA), and cerebral infarction without residual deficits; Z87.891 Personal history of nicotine dependence; Z83.3 Family history of diabetes mellitus; Z79.899 Other long term (current) drug therapy; Z93.3 Colostomy status; Z93.2 Ileostomy status; Z85.048 Personal history of other malignant neoplasm of rectum, rectosigmoid junction, and anus
CPT/HCPCS: 10045